=== PATIENT | male | born 1995 | race African-American/Black ===

== ENCOUNTER 2021-07-06 10:39 | Emergency (ER) | payer OTHER ==
[2021-07-06] MEDS ORDERED: Ondansetron ODT 4 MG TAB ONE (11:55)
[2021-07-06] MEDS ORDERED: Dicyclomine 20 MG TAB ONE (11:57)
== END 2021-07-06 12:29 | disposition home or self-care (01) ==
LOC: CSHERS 10:39
DX: R11.2 Nausea with vomiting, unspecified (principal); R10.30 Lower abdominal pain, unspecified; I10 Essential (primary) hypertension
CPT/HCPCS: 36416; 99284; Q0162